=== PATIENT | female | born 1960 | race Caucasian/White ===

== ENCOUNTER 2024-04-06 08:01 | Outpatient (CLI) | payer OTHER, SELFPAY ==
--- NOTE | ~2024-04-06 | XR_ITS ---
XR lumbar spine min 4V 04/06/2024 09:07 Indication: Back pain Procedure: 6 views lumbar spine Comparison: No prior studies for comparison. Findings: Levoscoliosis. Vertebral body heights are maintained. There is disc narrowing at all lumbar levels. There is multilevel facet hypertrophy. There is atherosclerosis of the aorta. No acute fract ure or traumatic malalignment. Impression: 1: Moderate lumbar spondylosis. Reviewed, dictated and finalized at location B. Impression: 1: Moderate lumbar spondylosis.
== END 2024-04-06 08:02 ==
LOC: MICIMG 08:02
PROVIDERS: PCP Family Medicine; Visit Provider Physician Assistant Medical
DX: M47.896 Other spondylosis, lumbar region (principal)
CPT/HCPCS: 72110